=== PATIENT | male | born 1965 ===

== ENCOUNTER 2023-01-24 06:06 | Outpatient (CLI) | payer OTHER, SELFPAY | END 2023-01-24 06:07 | disposition home or self-care (01) | LOC: SLEEP 01-25 06:08 | PROVIDERS: Visit Provider Anesthesiology Pain Medicine | DX: G47.33 Obstructive sleep apnea (adult) (pediatric) (principal); G47.36 Sleep related hypoventilation in conditions classified elsewhere; G47.10 Hypersomnia, unspecified | CPT/HCPCS: 95810 ==